=== PATIENT | male | born 1995 | race Caucasian/White ===

== ENCOUNTER 2017-04-22 23:11 | Emergency (ER) | payer SELFPAY ==
[~2017-04-22] VITALS: Ht 177.8 cm; Wt 67.0 kg
[2017-04-22 23:14] VITALS: BP 117/62; PULSE 71; RESP 16; TEMP 97.7; O2SAT 98
--- NOTE | 2017-04-22 23:40 | PD ---
HPI Chief Complaint: Chest Pain Time Seen by Provider: 23:27 Travel History International Travel<30 days: No Contact w/Intl Traveler<30days: No Traveled to known affect area: No History of Present Illness HPI This is a 21-year-old male who presents to the emergency department with left- sided chest pain, intermittent, moderate severity that's been going on for 2 days. He says last for about 15 minutes and then it subsides. He feels like it 's sharp, stabbing, radiating to the back and is worse with deep breaths and worse when he slouches. He says he went to [facility] for this yesterday and had some blood work and was given some injections. He did not have a chest x-ray at that time. He says the pain came back and that concerned him so he came to the emergency department. He denies any history of hypertension, diabetes, hyperlipidemia, smoking history, cocaine use or family history of heart disease. He's had no recent illness. He's had no recent long travel. He is otherwise healthy. [facility] Past Medical History Immunizations Current: Yes Tetanus Vaccination: < 5 Years Influenza Vaccination: No Social History Alcohol Use: No Tobacco Use: No Substance Use: No Allergies-Medications (Allergen,Severity, Reaction): Coded Allergies: amoxicillin (Verified Allergy, Severe, Anaphylaxis, 04/22/17) clavulanic acid (Verified Allergy, Severe, Anaphylaxis, 04/22/17) Reported Meds & Prescriptions Reported Meds & Active Scripts Active No Active Prescriptions or Reported Medications Review of Systems Except as stated in HPI: all other systems reviewed are Neg Physical Exam Narrative GENERAL:Well appearing, no acute distress SKIN: Focused skin assessment warm and dry. HEAD: Atraumatic. Normocephalic. EYES: Pupils equal and round. No injection or drainage. ENT: Moist mucous membranes NECK: Trachea midline. CARDIOVASCULAR: Regular rate and rhythm. No murmur appreciated. RESPIRATORY: Clear to auscultation. Breath sounds equal bilaterally. GASTROINTESTINAL: Abdomen soft, non-tender, nondistended. MUSCULOSKELETAL: No obvious deformities. NEUROLOGICAL: Awake and alert. No obvious cranial nerve deficits. Moving all extremities. PSYCHIATRIC: Appropriate mood and affect; insight and judgment normal. Data Data Last Documented VS Vital Signs Date Time Temp Pulse Resp B/P (MAP) Pulse Ox O2 Delivery O2 Flow Rate FiO2 04/22/17 23:24 Room Air 04/22/17 23:14 97.7 71 16 117/62 (80) 98 Orders Orders Complete Blood Count With Diff (04/22/17 23:34) Comprehensive Metabolic Panel (04/22/17 23:34) Troponin I (04/22/17 23:34) Lipase (04/22/17 23:34) Ketorolac Inj (Toradol Inj) (04/22/17 23:45) Chest, Pa & Lat (04/22/17 ) Labs Laboratory Tests Test 04/22/17 23:42 White Blood Count 10.8 TH/MM3 Red Blood Count 4.89 MIL/MM3 Hemoglobin 14.7 GM/DL Hematocrit 43.1 % Mean Corpuscular Volume 88.3 FL Mean Corpuscular Hemoglobin 30.0 PG Mean Corpuscular Hemoglobin Concent 34.0 % Red Cell Distribution Width 13.5 % Platelet Count 186 TH/MM3 Mean Platelet Volume 9.0 FL Neutrophils (%) (Auto) 60.2 % Lymphocytes (%) (Auto) 31.0 % Monocytes (%) (Auto) 6.4 % Eosinophils (%) (Auto) 1.9 % Basophils (%) (Auto) 0.5 % Neutrophils # (Auto) 6.5 TH/MM3 Lymphocytes # (Auto) 3.4 TH/MM3 Monocytes # (Auto) 0.7 TH/MM3 Eosinophils # (Auto) 0.2 TH/MM3 Basophils # (Auto) 0.1 TH/MM3 CBC Comment DIFF FINAL Differential Comment Blood Urea Nitrogen 20 MG/DL Creatinine 1.06 MG/DL Random Glucose 93 MG/DL Total Protein 7.2 GM/DL Albumin 3.6 GM/DL Calcium Level 8.2 MG/DL Alkaline Phosphatase 91 U/L Aspartate Amino Transf (AST/SGOT) 50 U/L Alanine Aminotransferase (ALT/SGPT) 49 U/L Total Bilirubin 0.8 MG/DL Sodium Level 138 MEQ/L Potassium Level 3.6 MEQ/L Chloride Level 103 MEQ/L Carbon Dioxide Level 24.4 MEQ/L Anion Gap 11 MEQ/L Estimat Glomerular Filtration Rate 88 ML/MIN Troponin I LESS THAN 0.02 NG/ML Lipase 128 U/L MDM Medical Decision Making Medical Screen Exam Complete: Yes Emergency Medical Condition: Yes Interpretation(s) ekg: nsr, st elevation predominantly in the anterior and lateral leads with j point elevation consistent with likely benign early repolarization no leukocytosis electrolytes are reassuring troponin normal lipase normal cxr: no acute process Differential Diagnosis acute coronary syndrome, pleurisy, pericarditis, pulmonary embolism, pneumothorax Narrative Course This is a very well appearing 21 year old male with no risk factors for coronary artery disease who presents to the emergency department with chest discomfort that has been intermittent since yesterday. EKG is non-ischemic, but does demonstrate diffuse st elevation which may reflect pericarditis, or may just reflect benign early repolarization. He is PERC negative. The patient is very low risk for acute coronary syndrome and I think further risk stratification would be difficulty to interpret in this patient. Labs are reassuring and cxr is unremarkable. I doubt a life threatening etiology of chest pain in this patient. Pt. will be discharged on anti-inflammatories. Diagnosis Primary Impression: Atypical chest pain Patient Instructions: General Instructions Additional Instructions: If you develop severe chest pain, trouble breathing, vomiting or new symptoms return to the emergency department. Follow up with your primary care physician as soon as possible. Med/Other Pt SpecificInfo: Prescription(s) given Scripts Naproxen (Naproxen) 500 Mg Tab 500 MG PO BID Y for PAIN SCALE 4 TO 10, #20 TAB 0 Refills Prov: Michelle Cutler MD 04/23/17 Disposition: 01 DISCHARGE HOME Condition: Stable Michelle Cutler MD Apr 22, 2017 23:40
[2017-04-22] MEDS ORDERED: KETOROLAC TROMETHAMINE 30 MG/ML (IVP) VIAL IV PUSH ONE (23:45)
[2017-04-23 00:05] LABS: AUTOMATED NEUTROPHIL # 6.5 TH/MM3 (1.8-7.7); BASOPHIL # 0.1 TH/MM3 (0-0.2); BASOPHIL % 0.5 % (0.0-2.0); EOSINOPHIL # 0.2 TH/MM3 (0-0.4); EOSINOPHIL % 1.9 % (0.0-4.0); HEMATOCRIT 43.1 % (39.0-51.0); HEMO FLAGS DIFF FINAL; LYMPHOCYTE # 3.4 TH/MM3 (1.0-4.8); MEAN CELL VOLUME 88.3 FL (80.0-100.0); MONO % 6.4 % (0.0-8.0); NEUT % 60.2 % (16.0-70.0); PLATELET COUNT 186 TH/MM3 (150-450); RED BLOOD COUNT 4.89 MIL/MM3 (4.50-5.90); RED CELL DISTRIBUTION WIDTH 13.5 % (11.6-17.2); WHITE BLOOD COUNT 10.8 TH/MM3 (4.0-11.0)
[2017-04-23 00:20] LABS: ALT (GPT) 49 U/L (12-78); ANION GAP 11 MEQ/L (5-15); AST (GOT) 50 U/L (15-37); BICARBONATE 24.4 MEQ/L (21.0-32.0); BLOOD UREA NITROGEN 20 MG/DL (7-18); CHLORIDE 103 MEQ/L (98-107); GLOMERULAR FILTRATION RATE 88 ML/MIN (>89); POTASSIUM 3.6 MEQ/L (3.5-5.1); SODIUM (NA) 138 MEQ/L (136-145)
[2017-04-23 00:24] LABS: ALKALINE PHOSPHATASE 91 U/L (45-117); TOTAL BILIRUBIN ADULT 0.8 MG/DL (0.2-1.0)
--- NOTE | 2017-04-23 00:37 | RADRPT ---
EXAM DATE/TIME: 04/22/2017 23:50 [place] COMPARISON: No previous studies available for comparison. INDICATIONS : Chest pain. MEDICAL HISTORY : None. SURGICAL HISTORY : None. ENCOUNTER: Initial ACUITY: 2 days PAIN SCORE: 2/10 LOCATION: Bilateral chest FINDINGS: PA and lateral views of the chest demonstrate the lungs to be symmetrically aerated without evidence of mass, infiltrate or effusion. The cardiomediastinal contours are unremarkable. Osseous structure s are intact. CONCLUSION: No acute cardiopulmonary process. Brodie Sandoval MD on April 23, 2017 at 0:35 Board Certified Radiologist. This report was verified electronically.
[2017-04-23] MEDS ORDERED: NAPR500T PO (00:46)
--- NOTE | 2017-04-23 12:48 | EKG ---
Date Performed: 04/22/2017 Time Performed: 23:26:45 PTAGE: 21 years EKG: Sinus rhythm EARLY REPOLARIZATION BORDERLINE ECG NO PREVIOUS TRACING DOCTOR: Jostin Nicole Interpretating Date/Time 04/23/2017 12:47:03
== END 2017-04-23 01:00 | disposition home or self-care (01) ==
LOC: NEPC 23:11
DX: R07.89 Other chest pain (principal)
CPT/HCPCS: 71020; 80053; 83690; 84484; 85025; 93005; 96374; 99284; J1885